=== PATIENT | female | born 2005 | race Two or more races ===

== ENCOUNTER 2024-01-12 01:16 | Emergency (ER) | payer SELFPAY ==
[~2024-01-12] VITALS: Ht 157.5 cm; Wt 106.9 kg
[2024-01-12] MEDS: ALBUTEROL SULF 2.5 MG/0.5ML(0.5%) NEB SOLN NEB ONE ×2 (01:52→01:57)
[2024-01-12] MEDS: IPRATROPIUM BROM 0.5 MG/2.5ML INH SOL NEB ONE ×2 (01:52→01:57)
[2024-01-12] MEDS: DexAMETHasone SOD PHOS 10MG/1ML VIAL INJ IM ONE (01:54)
[2024-01-12 02:10] VITALS: BP 122/85; PULSE 93; RESP 20; TEMP 97.4; O2SAT 96
[2024-01-12] MEDS ORDERED: AZITTAB PO (02:32)
[2024-01-12] MEDS ORDERED: ALBU1AER4 IN (02:32)
== END 2024-01-12 02:49 | disposition home or self-care (01) ==
LOC: ER 01:16
DX: J45.901 Unspecified asthma with (acute) exacerbation (principal)
CPT/HCPCS: 94640; 96372; 99283; J1100

== ENCOUNTER 2024-06-19 16:24 | Emergency (ER) | payer MEDICAID, OTHER ==
[~2024-06-19] VITALS: Ht 157.5 cm; Wt 105.7 kg
[~2024-06-19 16:24] MED LIST: ALBU1AER4 IN; AZITTAB PO
[2024-06-19 17:29] LABS: Urine Bacteria None Seen /hpf (None Seen)
[2024-06-19 17:50] LABS: Urine Blood Negative /uL (Negative); Urine Clarity Clear (Clear); Urine Color Light-Yellow (Yellow); Urine Protein, UAD Negative (Negative); Urine Specific Gravity 1.025 (1.001-1.035); Urine Squamous Epithelial Cell FEW /hpf (<5); Urine Urobilinogen Normal (Negative); Urine WBC 1 /HPF (0-5)
--- NOTE | 2024-06-19 18:02 | ED.PDOC ---
GI ASSESSMENT HPI Comments 18 year old female presents to the ED with a chief complaint of rectal bleeding onset 1 week. Patient states she has been experiencing intermittent rectal bleeding for the past week, notices blood when she wipes as well as in stool. Patient states pain is also intermittent. PMHx of asthma. Denies nausea, vomiting, diarrhea, fevers, chest pain, shortness of breath, abdominal pain. No other symptoms or modifying factors present at this time. Patient denies any history of hemorrhoids. Chief Complaint: Rectal Pain Time Seen by MD: 17:45 Primary Care Provider: MAGALY Mario Notes: Nurses Notes, Medications, Allergies Allergies: Coded Allergies: NO KNOWN ALLERGIES (Unverified , 01/12/24) Home Meds Active Scripts Albuterol Sulfate (Proair Respiclick) 108 Mcg/Act Aer, 1-2 PUFF IN Q6HPRN PRN, #1 AER Prov:SAV CHRISTIE MD 01/12/24 Azithromycin (Zithromax Z-Herbie) 250 Mg Tab, 250 MG PO DAILY for 5 Days, #6 TAB Two tabs p.o. on day 1, 1 tab daily for the next 4 days Prov:SAV CHRISTIE MD 01/12/24 Information Source: Patient Mode of Arrival: Ambulatory Timing: Weeks Duration: Intermittent Prehospital treatment: None Vomitus: None Severity: Moderate Recent: None Recent Hx of: None Pain Location: None Associated sign and symptoms: Blood in Stool Past Medical History PAST MEDICAL HISTORY: Asthma Surgical History: Denies all surgeries ENTER[employer] RESOURCE PLANNER History: Denies all ENTER[employer]ISE RESOURCE PL[employer]NER Hx Family History Family History: Reviewed,noncontributory to illness Social History Smoker: Non-Smoker Alcohol: Denies ETOH Use Drugs: Denies Drug Use Lives In: Home Constitutional: denies: chills, diaphoresis, fatigue, fever, malaise, sweats, weakness, others EENTM: denies: blurred vision, double vision, ear bleeding, ear discharge, ear drainage, ear pain, ear ringing, eye pain, eye redness, hearing loss, mouth pain, mouth swelling, nasal discharge, nose bleeding, nose congestion, nose pain, photophobia, tearing, throat pain, throat swelling, voice changes, others Respiratory: denies: cough, hemoptysis, orthopnea, SOB at rest, shortness of breath, SOB with excertion, stridor, wheezing, others Cardiovascular: denies: chest pain, dizzy spells, diaphoresis, Dyspnea on exertion, edema, irregular heart beat, left arm pain, lightheadedness, palpitations, PND, syncope, others Gastrointestinal: reports: rectal bleeding, rectal pain; denies: abdomen distended, abdominal pain, blood streaked bowels, constipated, diarrhea, dysphagia, difficulty swallowing, hematemesis, melena, nausea, poor appetite, poor fluid intake, vomiting, others Genitourinary: denies: abnormal vagina bleeding, burning, dyspareunia, dysuria, flank pain, frequency, hematuria, incontinence, pain, , vagina discharge, urgency, others Neurological: denies: dizziness, fainting, headache, left sided numbness, left sided weakness, numbness, paresthesia, pre-existing deficit, right sided numbness, right sided weakness, seizure, speech problems, tingling, tremors, weakness, others Musculoskeletal: denies: back pain, gout, joint pain, joint swelling, muscle pain, muscle stiffness, neck pain, others Integumetry: denies: bruises, change in color, change in hair/nails, dryness, laceration, lesions, lumps, rash, wounds, others Allergic/Immunocompromised: denies: Difficulty Healing, Frequent Infections, Hives, Itching, others Hematologic/Lymphatic: denies: anemia, blood clots, easy bleeding, easy bruising, swollen glands, others Endocrine: denies: excessive hunger, excessive sweating, excessive thirst, excessive urination, flushing, intolerance to cold, intolerance to heat, unexplained weight gain, unexplained weight loss, others Psychiatric: denies: anxiety, bipolar disorder, depression, hopeless, panic disorder, schizophrenia, sleepless, suicidal, others All Other Systems: Reviewed and Negative Physical Exam General Appearance: Mild Distress (Mild distress due to anxiety related to the events rather than pain concerns.), Obese HEENT: Normal ENT Inspection, Pharynx Normal, TMs Normal Neck: Full Range of Motion, Non-Tender, Normal, Normal Inspection Respiratory: Chest Non-Tender, Lungs Clear, No Accessory Muscle Use, No Re spiratory Distress, Normal Breath Sounds Cardiovascular: No Edema, No JVD, No Murmur, No Gallop, Normal Peripheral Pulses, Regular Rate/Rhythm Breast Exam: Deferred Gastrointestinal: No Organomegaly, Non Tender, No Pulsatile Mass, Normal Bowel Sounds, Soft Genitalia: Deferred Pelvic: Deferred Rectal: Deferred Extremities: No calf tenderness, Normal capillary refill, Normal inspection, Normal range of motion, Non-tender, No pedal edema Musculoskeletal : Apperance: Normal Neurologic: Alert, No Motor Deficits, Normal Affect, Normal Mood, No Sensory Deficits Cerebellar Function: Normal Reflexes: Normal Skin: Dry, Normal Color, Warm Lymphatic: No Adenopathy Was a procedure done? Was a procedure done?: No GI differential Dx Differential Diagnosis: Other (Anal fissure, hemorrhoids) X-Ray, Labs, Meds, VS Vital Signs Date Time Temp Pulse Resp B/P (MAP) Pulse Ox O2 Delivery O2 Flow Rate FiO2 06/19/24 17:11 97.0 92 16 129/80 (96) 97 Lab Test 06/19/24 17:27 Range/Units Urine Color Light-yellow Yellow Urine Clarity Clear Clear Urine pH 7.0 5.0-9.0 Urine Specific [place] 1.025 1.001-1.035 Urine Protein Negative Negative Urine Ketones Negative Negative Urine Blood Negative Negative /uL Urine Nitrite Negative Negative Urine Bilirubin Negative Negative Urine Urobilinogen Normal Negative mg/dL Urine Leukocyte Esterase Negative Negative /uL Urine RBC 1 0 - 4 /hpf Urine Microscopic WBC 1 0-5 /HPF Urine Squamous Epithelial Cells Few <5 /hpf Urine Bacteria None seen None Seen /hpf Urine Glucose Normal Normal mg/dL X-Ray, Labs, Meds, VS Comment All studies performed the ED were evaluated by me personally. Urinalysis was unremarkable for any UTI formation. Spent time discussing the events but the patient was experiencing. Advised that she suffering from hemorrhoid concerns. Advised patient utilize medication as directed. If symptoms continue, patient will need to follow up with primary care provider. Advised patient utilize good hydration and increase fiber content in her diet. Time of 1ST Reevaluation: 18:26 Reevaluation 1ST: Improved Consultation: PCP Patient Education/Counseling: Diagnosis, Treatment, Prognosis Family Education/Counseling: Diagnosis, Treatment, No Family Present Departure 1 Departure Time of Disposition: 18:27 Impression: Primary Impression: Hemorrhoids Disposition: 01 HOME / SELF CARE / HOMELESS Condition: Stable Additional Instructions: Advised patient utilize medication as needed for symptomatic relief. If symptoms continue, patient will need to follow up with primary care provider for continued evaluation and management. Patient should increase hydration as well as fiber content foods in her diet. e-Prescriptions Phenylephrine-Shark Liver Oil- (Hemorrhoidal Suppositorie 0.25-3-85.5 %) 1 Sup Sup 1 SUP [place] BID, #20 SUPP Prov: MARIAN MOORE PAC 06/19/24 Discharged With: Self, Friend Critical Care Note Critical Care Time?: No Stability Stability form required: No Heart Score Heart Score: Heart Score Response (Comments) Value History N/A 0 EKG N/A 0 Age N/A 0 Risk Factors N/A 0 Troponin N/A 0 Total 0 I personally scribed for MARIAN MOORE PAC ([email or web address]) on 06/19/24 at 18:02. Electronically submitted by Allyson Cadena ([email or web address]). MARIAN MOORE PAC Jun 19, 2024 18:02
[2024-06-19] MEDS ORDERED: PHENSUP38 PR (18:28)
[2024-06-19 18:35] VITALS: BP 126/69; PULSE 65; RESP 19; TEMP 98.9; O2SAT 96
== END 2024-06-19 18:46 | disposition home or self-care (01) ==
LOC: ER 16:33
DX: K64.9 Unspecified hemorrhoids (principal); K62.5 Hemorrhage of anus and rectum; J45.909 Unspecified asthma, uncomplicated
CPT/HCPCS: 81001

== ENCOUNTER 2025-01-31 18:13 | Emergency (ER) | payer MEDICAID ==
[~2025-01-31] VITALS: Ht 157.5 cm; Wt 107.9 kg
[~2025-01-31 18:13] MED LIST changes: +PHENSUP38 PR
--- NOTE | 2025-01-31 20:18 | ED.PDOC ---
History of Present Illness HPI Comments 19-year-old female, with a history of asthma, presents with friend for chief complaint of intermittent, epigastric and suprapubic abdominal pain. Patient states on ongoing symptoms following initial, unprovoked and atraumatic onset on January 29, 2025. Patient reports pain coming in waves, with intervals in between pain onset lasting a proximally 1 minutes induration. Pain is worse with spicy food. No relief with [id number] pain medications. She states on going to another emergency department for pain and being given a shot with temporary relief lasting approximately 5 hours. Denies any nausea, vomiting, diarrhea, or further associated symptoms. REVIEW OF SYSTEMS: General: No fever, no chills, HEENT: No neck pain, no blurred vision Cardiac: No chest pain. No palpitations. Lungs: No shortness of breath, GI: Abdominal pain, no vomiting Musculoskeletal: No joint pain , no back pain Skin: No rash, no wound Neuro: No headache, no dizziness, no syncope PHYSICAL EXAM: General: Awake, alert and oriented. No acute distress. Skin: Skin in warm, dry and intact without rashes or lesions. HEENT: The head is normocephalic and atraumatic. Conjunctivae are clear without exudates or hemorrhage. Sclera is non-icteric. Neck: Normal range of motion. No JVD. Cardiac: Regular rate Respiratory: No signs of respiratory distress. No Stridor. Gastrointestinal: Right lower quadrant tenderness. Extremities: Upper and lower extremities are atraumatic in appearance without deformity. Neurological: The patient is awake, alert and oriented to person, place, and time with normal speech. Speech is clear. There is no facial asymmetry. Psychiatric: Appropriate mood and affect. Good judgement and insight. Chief Complaint: Abdominal Pain Time Seen by MD: 20:10 Primary Care Provider: MAGALY Mario Notes: Nurses Notes Allergies: Coded Allergies: NO KNOWN ALLERGIES (Unverified , 01/12/24) Home Meds Active Scripts Acetaminophen (Acetaminophen) 500 Mg Tab, 500 MG PO TIDP PRN for 7 Days, #21 TAB Prov:CYNTHIA MONTERROSO MD 01/31/25 Pantoprazole Sodium Sesquihydr (Protonix) 40 Mg Tab, 40 MG PO DAILY, #10 TAB Prov:CYNTHIA MONTERROSO MD 9/14/25 Phenylephrine-Shark Liver Oil- (Hemorrhoidal Suppositorie 0.25-3-85.5 %) 1 Sup Sup, 1 SUP [place] BID, #20 SUPP Prov:MARIAN MOORE PAC 06/19/24 Albuterol Sulfate (Proair Respiclick) 108 Mcg/Act Aer, 1-2 PUFF IN Q6HPRN PRN, #1 AER Prov:SAV CHRISTIE MD 01/12/24 Azithromycin (Zithromax Z-Herbie) 250 Mg Tab, 250 MG PO DAILY for 5 Days, #6 TAB Two tabs p.o. on day 1, 1 tab daily for the next 4 days Prov:SAV CHRISTIE MD 01/12/24 Information Source: Patient Mode of Arrival: Ambulatory Past Medical History PAST MEDICAL HISTORY: Asthma Surgical History: Denies all surgeries LEGAL BILLING SPECIALIST History: Denies all LEGAL BILLING SPECIALIST Hx Family History Family History: Reviewed,noncontributory to illness Social History Smoker: Non-Smoker Alcohol: Denies ETOH Use Drugs: Denies Drug Use Lives In: Home Was a procedure done? Was a procedure done?: No Differential Dx Considerations may include: Differential diagnoses considered include: Abdominal aortic aneurysm, IA, esophageal rupture, intestinal obstruction, mesenteric ischemia, perforated viscus or solid organ rupture, CHF with hepatomegaly, pneumonia, abscess, appendicitis, biliary disease, diverticulitis, gastritis, gastroenteritis, hepatitis, hernia, inflammatory bowel disease, pancreatitis, peptic ulcer disease, urinary tract infection, ureteral colic, constipation, GERD, irritable syndrome, abdominal wall pain, nonspecific abdominal pain, herpes zoster, nephrolithiasis. [ ]Also ruptured ectopic , ovarian torsion/cyst, tubo- ovarian abscess, PID, endometriosis, mittleschmerz. X-Ray, Labs, Meds, VS Vital Signs Date Time Temp Pulse Resp B/P (MAP) Pulse Ox O2 Delivery O2 Flow Rate FiO2 02/01/25 01:06 98.1 69 18 114/62 (79) 99 98.1 02/01/25 01:06 69 18 99 Room Air 01/31/25 18:15 98.0 83 16 121/70 100 98.0 Lab Test 01/31/25 21:12 01/31/25 20:57 Range/Units Urine Color Yellow Yellow Urine Clarity Turbid H Clear Urine pH 5.0 5.0-9.0 Urine Specific [place] 1.036 H 1.001-1.035 Urine Protein Trace H Negative Urine Ketones Trace Negative Urine Blood 3+ H Negative /uL Urine Nitrite Negative Negative Urine Bilirubin Negative Negative Urine Urobilinogen Normal Negative mg/dL Urine Leukocyte Esterase Trace Negative /uL Urine RBC 1 0 - 4 /hpf Urine Microscopic WBC 4 0-5 /HPF Urine Squamous Epithelial Cells Few <5 /hpf Urine Bacteria None seen None Seen /hpf Urine Hyaline Casts Few 0 - 2 /lpf Urine Mucus Few None Seen Urine Glucose Normal Normal mg/dL Urine Test Negative Negative White Blood Count 8.2 4.4-10.8 10^3/uL Red Blood Count 4.76 4.0-5.20 10^6/uL Hemoglobin 14.4 12.2-16.2 g/dL Hematocrit 41.3 36.0-46.0 % Mean Corpuscular Volume 86.8 80.0-100.0 fL Mean Corpuscular Hemoglobin 30.3 28.0-32.0 pg Mean Corpuscular Hemoglobin Concent 34.9 32.0-36.0 g/dL Red Cell Distribution Width 13.3 11.8-14.3 % Platelet Count 242 140-450 10^3/uL Mean Platelet Volume 9.5 6.9-10.8 fL Neutrophils (%) (Auto) 56.3 37.0-80.0 % Lymphocytes (%) (Auto) 36.6 10.0-50.0 % Monocytes (%) (Auto) 5.5 0.0-12.0 % Eosinophils (%) (Auto) 0.9 0.0-7.0 % Basophils (%) (Auto) 0.7 0.0-2.0 % Neutrophils # (Auto) 4.6 1.6-8.6 10 ^3/uL Lymphocytes # (Auto) 3.0 0.4-5.4 10 ^3/uL Monocytes # (Auto) 0.4 0-1.3 10 ^3/uL Eosinophils # (Auto) 0.1 0-0.8 10 ^3/uL Basophils # (Auto) 0.1 0-0.2 10 ^3/uL Nucleated Red Blood Cells 0.1 % Sodium Level 143 136-145 mmol/L Potassium Level 4.0 3.5-5.1 mmol/L Chloride Level 108 H 98-107 mmol/L Carbon Dioxide Level 25 20-31 mmol/L Anion Gap 10 5-15 Blood Urea Nitrogen 14 9-23 mg/dL Creatinine 0.91 0.550-1.02 mg/dL Glomerular Filtration Rate Calc 93 >90 mL/min BUN/Creatinine Ratio 15.4 10.0-20.0 Serum Glucose 96 74-106 mg/dL Calcium Level 9.3 8.7-10.4 mg/dL Current Medications Medications (Trade) Dose Ordered Sig/Qamar Route Start Time Stop Time Status Last Admin Al Hydrox/Mg Hydrox/Simethicone (Maalox Plus) 30 ml ONCE ONCE PO 01/31/25 20:45 01/31/25 20:46 DC 02/01/25 01:03 Lidocaine HCl (Xylocaine 2% Viscous) 10 ml ONCE ONCE PO 01/31/25 20:45 01/31/25 20:46 DC 02/01/25 01:03 Time of 1ST Reevaluation: 20:40 Reevaluation 1ST: Unchanged Patient Education/Counseling: Treatment, Need For Follow Up Family Education/Counseling: No Family Present SEPSIS Sepsis Screen Date sepsis recognized/suspect: Jan 31, 2025 Time Sepsis recognized/suspect: 1814 Recent Procedure: No On Antibiotic Therapy: No Respiratory Rate >20: No Heart Rate >90: No Temp<36 C (96.8 F) or >38.3 C: No SBP <90 or MAP <65 mmHG: No New Acute Mental Status Change: No Is the patient on CPAP, BIPAP,: No Vital Signs Date Time Temp Pulse Resp B/P (MAP) Pulse Ox O2 Delivery O2 Flow Rate FiO2 02/01/25 01:06 98.1 69 18 114/62 (79) 99 98.1 02/01/25 01:06 69 18 99 Room Air 01/31/25 18:15 98.0 83 16 121/70 100 98.0 Laboratory Tests Test 01/31/25 20:57 White Blood Count 8.2 10^3/uL (4.4-10.8) Medications Medications Dose Ordered Sig/Qamar Route Start Time Stop Time Status Last Admin Dose Admin Al Hydrox/Mg Hydrox/Simethicone 30 ml ONCE ONCE PO 01/31/25 20:45 01/31/25 20:46 DC 02/01/25 01:03 Lidocaine HCl 10 ml ONCE ONCE PO 01/31/25 20:45 01/31/25 20:46 DC 02/01/25 01:03 Departure 1 Departure Time of Disposition: 01:53 Impression: Primary Impression: Abdominal pain Disposition: HOME / SELF CARE / HOMELESS Condition: Stable Additional Instructions: ED DISCHARGE INSTRUCTIONS Instructions: Please read all instructions provided in this packet carefully. Although you have been discharged from the Emergency Department, this does not mean that you have a "clean bill of health". No definitive diagnosis for your symptoms has been made today. It is possible that you are in the process of developing a serious illness. This is why you must return to the ED without fail if any new or worsening symptoms (especially if your symptoms include chest pain, trouble breathing, abdominal pain, fever, headache, confusion, trouble seeing, or trouble walking) It is also very important that you see a primary care provider (PCP) within the next 3-5 days to follow up. If you are unable to get an appointment, return to the ED for re-evaluation. Abdominal Pain: Care Instructions Overview Abdominal pain has many possible causes. Some aren't serious and get better on their own in a few days. Others need more testing and treatment. If your pain continues or gets worse, you need to be rechecked and may need more tests to find out what is wrong. You may need surgery to correct the problem. Don't ignore new symptoms, such as fever, nausea and vomiting, urination problems, pain that gets worse, and dizziness. These may be signs of a more serious problem. If you are not getting better, you may need more tests or treatment. The doctor has checked you carefully, but problems can develop later. If you notice any problems or new symptoms, get medical treatment right away. Follow-up care is a ward part of your treatment and safety. Be sure to make and go to all appointments, and call your doctor if you are having problems. It's also a good idea to know your test results and keep a list of the medicines you take. How can you care for yourself at home? Rest until you feel better. To prevent dehydration, drink plenty of fluids. Choose water and other clear liquids until you feel better. If you have kidney, heart, or liver disease and have to limit fluids, talk with your doctor before you increase the amount of fluids you drink. When you feel like eating, start with small amounts. Do not have alcohol, caffeine, or spicy, hot, or high-fat foods for a day or two. Avoid anti-inflammatory medicines such as aspirin, ibuprofen (Advil, Motrin), and naproxen (Aleve). These can cause stomach upset. Talk to your doctor if you take daily aspirin for another health problem. When should you call for help? Call 911 anytime you think you may need emergency care. For example, call if: You passed out (lost consciousness). You pass maroon or very bloody stools. You vomit blood or what looks like coffee grounds. You have severe belly pain. Call your doctor now or seek immediate medical care if: Your pain gets worse, especially if it becomes focused in one area of your belly. You have a new or higher fever. Your stools are black and look like tar, or they have streaks of blood. You have unexpected vaginal bleeding. You have symptoms of a urinary tract infection. These may include: Pain when you urinate. Urinating more often than usual. Blood in your urine. You are dizzy or lightheaded, or you feel like you may faint. Watch closely for changes in your health, and be sure to contact your doctor if: You are not getting better as expected. Credits for Abdominal Pain: Care Instructions Current as of: March 07, 2023 Author: [employer] Staff Clinical Review Board All [employer] education is reviewed by a team that includes physicians, nurses, advanced practitioners, registered dieticians, and other healthcare professionals. e-Prescriptions Acetaminophen (Acetaminophen) 500 Mg Tab 500 MG PO TIDP PRN for 7 Days, #21 TAB Prov: CYNTHIA MONTERROSO MD 01/31/25 Pantoprazole Sodium Sesquihydr (Protonix) 40 Mg Tab 40 MG PO DAILY, #10 TAB Prov: CYNTHIA MONTERROSO MD 01/31/25 Comments MDM: 19-year-old female presented with abdominal pain. No peritoneal signs on abdominal exam. No evidence of acute abdomen at this time. patient is well appearing. Labs show no leukocytosis or elevation of LFTs. Imaging not warranted at this time. Patient is afebrile. Patient is not hypotensive. Low suspicion for acute hepatobiliary disease (including acute cholecystitis, acute pancreatitis, PUD (including perforation), acute infectious process (pneumonia, hepatitis, pyelonephritis), acute appendicitis, vascular catastrophe, bowel obstructions, viscous perforation. Presentation not consistent with other acute, emergent causes of abdominal pain at this time. Extensive evaluation was performed in attempt to identify or rule out: (See differential diagnosis section) The following tests were ordered, and results were reviewed by me and discussed with patient: (See diagnostic results section) The following test were independently interpreted by me: N/A I reviewed and agreed with the following test results read by other providers: N/A I reviewed the following notes from the pt's past medical encounters: June 19, 2024 encounter for hemorrhoids Decision regarding hospitalization or escalation of hospital level of care: Risks and benefits of admission for further treatment of patient's condition was considered however due to patient's stable condition patient will be discharged to follow up closely or return to care for worsening of condition or inability to follow up. Critical Care Note Critical Care Time?: No Stability Stability form required: No Heart Score Heart Score: Heart Score Response (Comments) Value History N/A 0 EKG N/A 0 Age N/A 0 Risk Factors N/A 0 Troponin N/A 0 Total 0 I personally scribed for CYNTHIA MONTERROSO MD ([email or web address]) on 01/31/25 at 20:17. Electronically submitted by Nayan Brown ([email or web address]). CYNTHIA MONTERROSO MD Jan 31, 2025 20:17
[2025-01-31 21:26] LABS: Hematocrit 41.3 % (36.0-46.0); Hemoglobin 14.4 g/dL (12.2-16.2); Mean Corpuscular Hemoglobin 30.3 pg (28.0-32.0); Mean Corpuscular Volume 86.8 fL (80.0-100.0); Nucleated Red Blood Cells % 0.1 %
[2025-01-31 21:35] LABS: Potassium 4.0 mmol/L (3.5-5.1); Sodium 143 mmol/L (136-145)
[2025-01-31 21:36] LABS: Anion Gap 10 (5-15); Calcium 9.3 mg/dL (8.7-10.4); Carbon Dioxide 25 mmol/L (20-31)
[2025-01-31 21:41] LABS: BUN/Creatinine Ratio 15.4 (10.0-20.0); Blood Urea Nitrogen 14 mg/dL (9-23); Glucose 96 mg/dL (74-106)
[2025-01-31 21:48] LABS: Chloride 108 mmol/L (98-107)
[2025-01-31] MEDS ORDERED: PANT40TA2 PO (22:05)
[2025-01-31] MEDS ORDERED: ACET500T58 PO (22:05)
[2025-02-01] MEDS: LIDOCAINE VISCOUS 2% 15ML UD PO ONE (01:03)
[2025-02-01] MEDS: MAALOX PLUS or MAALOX 30 ML PO ONE (01:03)
[2025-02-01] MEDS ORDERED: LIDOCAINE VISCOUS 2% 15ML UD ONE (01:05)
[2025-02-01 01:06] VITALS: BP 114/62; PULSE 69; RESP 18; TEMP 98.1; O2SAT 99
[2025-02-01] MEDS ORDERED: MAALOX PLUS or MAALOX 30 ML ONE (01:06)
[2025-02-01 01:17] LABS: Urine Protein, UAD TRACE (Negative)
== END 2025-02-01 02:26 | disposition home or self-care (01) ==
LOC: ER 18:13
DX: R10.13 Epigastric pain (principal); R10.2 Pelvic and perineal pain; J45.909 Unspecified asthma, uncomplicated; Z79.899 Other long term (current) drug therapy
CPT/HCPCS: 36415; 80048; 81001; 81025; 85025

== ENCOUNTER 2025-05-10 02:46 | Emergency (ER) | payer MEDICAID ==
[~2025-05-10] VITALS: Ht 157.5 cm; Wt 111.3 kg
[~2025-05-10 02:46] MED LIST changes: +ACET500T58 PO; +PANT40TA2 PO
[2025-05-10] MEDS: KETOROLAC TROMETH 30 MG/ML 1ML VIAL IM ONE (03:31)
--- NOTE | 2025-05-10 03:46 | ED.PDOC ---
HPI (NEURO) HPI Comments 19 year-old female presents to the ED with a chief complaint of headaches for weeks. Patient reports that she has chronic headaches. She gets headaches between two to 3 times a week. She has had this for many months. Her doctor has seen her and working her up. However, she was instructed by her doctor to not take any medications including [id number] medications. Her doctor told her if her headache is intolerable to come to the emergency room. Patient denies any injuries or any new changes to her chronic pattern of headaches. She has no fever or chills. 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 [employer]RECTION[employer] OFF[employer]ER CAPTAIN Hx Family History Family History: Reviewed,noncontributory to illness Social History Smoker: Non-Smoker Alcohol: Denies ETOH Use Drugs: Denies Drug Use Lives In: Home Constitutional: denies: chills, diaphoresis, fatigue, fever, malaise, sweats, weakness, others EENTM: denies: blurred vision, double vision, ear bleeding, ear discharge, ear drainage, ear pain, ear ringing, eye pain, eye redness, hearing loss, mouth pain, mouth swelling, nasal discharge, nose bleeding, nose congestion, nose pain, photophobia, tearing, throat pain, throat swelling, voice changes, others Respiratory: denies: cough, hemoptysis, orthopnea, SOB at rest, shortness of breath, SOB with excertion, stridor, wheezing, others Cardiovascular: denies: chest pain, dizzy spells, diaphoresis, Dyspnea on exertion, edema, irregular heart beat, left arm pain, lightheadedness, palpitations, PND, syncope, others Gastrointestinal: denies: abdomen distended, abdominal pain, blood streaked bowels, constipated, diarrhea, dysphagia, difficulty swallowing, hematemesis, melena, nausea, poor appetite, poor fluid intake, rectal bleeding, rectal pain, vomiting, others Genitourinary: denies: abnormal vagina bleeding, burning, dyspareunia, dysuria, flank pain, frequency, hematuria, incontinence, pain, , vagina discharge, urgency, others Neurological: reports: headache; denies: dizziness, fainting, left sided numbness, left sided weakness, numbness, paresthesia, pre-existing deficit, right sided numbness, right sided weakness, seizure, speech problems, tingling, tremors, weakness, others Musculoskeletal: denies: back pain, gout, joint pain, joint swelling, muscle pain, muscle stiffness, neck pain, others Integumetry: denies: bruises, change in color, change in hair/nails, dryness, laceration, lesions, lumps, rash, wounds, others Allergic/Immunocompromised: denies: Difficulty Healing, Frequent Infections, Hives, Itching, others Hematologic/Lymphatic: denies: anemia, blood clots, easy bleeding, easy bruising, swollen glands, others Endocrine: denies: excessive hunger, excessive sweating, excessive thirst, excessive urination, flushing, intolerance to cold, intolerance to heat, unexplained weight gain, unexplained weight loss, others Psychiatric: denies: anxiety, bipolar disorder, depression, hopeless, panic disorder, schizophrenia, sleepless, suicidal, others All Other Systems: Reviewed and Negative Physical Exam General Appearance: No Apparent Distress, Normal HEENT: Normal ENT Inspection, Pharynx Normal, TMs Normal Neck: Full Range of Motion, Non-Tender, Normal, Normal Inspection Respiratory: Chest Non-Tender, Lungs Clear, No Accessory Muscle Use, No Respiratory Distress, Normal Breath Sounds Cardiovascular: No Edema, No JVD, No Murmur, No Gallop, Normal Peripheral Pulses, Regular Rate/Rhythm Breast Exam: Deferred Gastrointestinal: No Organomegaly, Non Tender, No Pulsatile Mass, Normal Bowel Sounds, Soft Genitalia: Deferred Pelvic: Deferred Rectal: Deferred Extremities: No calf tenderness, Normal capillary refill, Normal inspection, Normal range of motion, Non-tender, No pedal edema Musculoskeletal : Apperance: Normal Neurologic: Alert, executive receptionist II-XII nml as Tested, No Motor Deficits, Normal Affect, Normal Mood, No Sensory Deficits Cerebellar Function: Normal Reflexes: Normal Skin: Dry, Normal Color, Warm Lymphatic: No Adenopathy Was a procedure done? Was a procedure done?: No Differential Diagnosis (SZ) Headache: Cluster, Migraine, Post-Traumatic, Sinusitis X-Ray, Labs, Meds, VS Vital Signs Date Time Temp Pulse Resp B/P (MAP) Pulse Ox O2 Delivery O2 Flow Rate FiO2 05/10/25 02:48 98.2 81 16 140/89 98 98.2 Current Medications Medications (Trade) Dose Ordered Sig/Qamar Route Start Time Stop Time Status Last Admin Ketorolac Tromethamine (Toradol Injection) 15 mg ONCE ONCE IM 05/10/25 03:15 05/10/25 03:16 DC 05/10/25 03:31 Time of 1ST Reevaluation: 04:29 Reevaluation 1ST: Unchanged Patient Education/Counseling: Diagnosis, Treatment Family Education/Counseling: No Family Present Comments This is a patient who has chronic headaches to 3 times a week for many months presents with the same headaches. She states that her doctor had told her not to take any medications including [id number] medication and to come into the ER instead. Patient's CAT scans unremarkable. She does not have any neurologic findings. The she does not have any signs of meningismus. Patient is being worked up by her doctor. She is stable to continue to follow up with her doctor in the meantime I will prescribe her Motrin as needed for pain Departure 1 Departure Time of Disposition: 03:49 Impression: Primary Impression: Chronic headaches Disposition: 01 HOME / SELF CARE / HOMELESS Condition: Stable e-Prescriptions Ibuprofen Micronized (MOTRIN TABLET) 600 Mg Tb 600 MG PO TID PRN, #20 TAB *Black box warning-NSAIDS can increase risk of VA & hypertension, GI irritation, ulceration, bleed, perferation. Do not use post cardiac surgery. Use short duration/lowest effective dose. Prov: FLORIDALMA TRUJILLO MD 05/10/25 Discharged With: Self Critical Care Note Critical Care Time?: No Stability Stability form required: No Heart Score Heart Score: Heart Score Response (Comments) Value History N/A 0 EKG N/A 0 Age N/A 0 Risk Factors N/A 0 Troponin N/A 0 Total 0 I personally scribed for FLORIDALMA TRUJILLO MD ([email or web address]) on 05/10/25 at 03:46. Elect ronically submitted by [facility]). FLORIDALMA TRUJILLO MD May 10, 2025 03:46
[2025-05-10] MEDS ORDERED: IBU600T PO (03:50)
--- NOTE | 2025-05-10 03:54 | DVH ---
EXAM: CT HEAD WITHOUT CONTRAST INDICATION: headache TECHNIQUE: CT of the head without intravenous contrast. Radiation Dose : 1. Head: CT Dose: CTDI volume is 60.82 mGy. Dose-length product is 974.77 mGy*cm The dose indicators for CT are the volume Computed Tomography (CT) Dose Index (CTDIvol) and the Dose Length Product (DLP), and are measured in units of mGy and mGy-cm, respectively. These indicators are not patient dose, but values generated from the CT scanner acquisition factors. The report includes radiation exposure data for exposures received during this examination. COMPARISON: CT HEAD WITHOUT CONTRAST on DOS: 06/09/24, CT BRAIN on DOS: 06/07/24 FINDINGS: There is no evidence of acute intracranial hemorrhage, extra-axial collection, mass effect, midline shift, herniation or hydrocephalus. The ventricles, sulci and cisterns are age appropriate. The sheridan-white differentiation is intact. The visualized paranasal sinuses and mastoid air cells are clear. The surrounding soft tissues and osseous structures are unremarkable. IMPRESSION: 1. No evidence of acute intracranial abnormality. Radiation optimization: All CT scans at this facility use at least one of these dose optimization techniques: automated exposure control mA and/or kV adjustment per patient size (includes targeted exams where dose is matched to clinical indication) or iterative reconstruction.
[2025-05-10 03:55] VITALS: BP 127/94; PULSE 55; RESP 16; TEMP 98.7; O2SAT 95
== END 2025-05-10 04:15 | disposition home or self-care (01) ==
LOC: ER 02:46
DX: R51.9 Headache, unspecified (principal); J45.909 Unspecified asthma, uncomplicated
CPT/HCPCS: 70450; 96372; 99285; J1885